=== PATIENT | female | born 1985 | race African-American/Black ===

== ENCOUNTER 2018-01-10 15:06 | Emergency (ER) | payer MEDICAID ==
[~2018-01-10] VITALS: Ht 152.4 cm; Wt 54.4 kg
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
--- NOTE | 2018-01-10 15:35 | NUR ---
DR. SCOTT AT BEDSIDE FOR EVAL.
[2018-01-10] MEDS ORDERED: IBUPROFEN 600 MG TABLET PO ONE ×2 (16:00→16:03)
--- NOTE | 2018-01-10 17:03 | NUR ---
Patient discharged to home in stable condition. Written and verbal after care instructions given. Patient verbalizes understanding of instruction.
[2018-01-10 17:04] VITALS: BP 110/71
== END 2018-01-10 17:05 | disposition home or self-care (01) ==
LOC: ER 15:08
DX: S80.02XA Contusion of left knee, initial encounter (principal); S00.83XA Contusion of other part of head, initial encounter; S19.89XA Other specified injuries of other specified part of neck, initial encounter; Z60.2 Problems related to living alone; V43.52XA Car driver injured in collision with other type car in traffic accident, initial encounter; Y93.89 Activity, other specified; Y92.410 Unspecified street and highway as the place of occurrence of the external cause; Y99.8 Other external cause status
CPT/HCPCS: 72050; 73564; 84703; 99284; A4606; Z7610

== ENCOUNTER 2019-01-17 07:19 | Emergency (ER) | payer MEDICAID ==
[~2019-01-17] VITALS: Ht 152.4 cm; Wt 54.4 kg
--- NOTE | 2019-01-17 07:36 | NUR ---
PT BIBSELF FROM HOME FOR MID UPPER ABD PAIN X 1 WEEK, WORSE TODAY, PT AAOX4, -SOB, NAD NOTED, VSS, PENDING MD GANDHI
--- NOTE | 2019-01-17 07:37 | NUR ---
DR CALLE AT BEDSIDE
[2019-01-17] MEDS ORDERED: LIDOCAINE VISCOUS 2% UD 15 ML UDC ONE (07:49)
[2019-01-17] MEDS ORDERED: MAG HYDROX/AL HYDROX/SIMETH 30 ML UDC ONE (07:49)
[2019-01-17] MEDS ORDERED: FAMOTIDINE/PF INJ 20 MG/2 ML VIAL IV ONE ×2 (07:51→08:00)
[2019-01-17 07:52] LABS: BASOPHILS % (AUTO) 0.4 % (0.0-2.0); EOSINOPHILS % (AUTO) 3.4 % (0.0-6.0); HEMATOCRIT 41 % (33-45); HEMOGLOBIN 13.7 g/dL (11.5-14.8); LYMPHOCYTES # (AUTO) 1.8 /CMM (0.8-4.8); LYMPHOCYTES % (AUTO) 33.7 % (20.0-44.0); MEAN CORPUSCULAR HGB CONC 33 g/dl (31.0-36.0); MEAN CORPUSCULAR VOLUME 96 fL (82-100); MONOCYTES # (AUTO) 0.6 /CMM (0.1-1.30); MONOCYTES % (AUTO) 10.4 % (2.0-12.0); NEUTROPHILS # (AUTO) 2.8 /CMM (1.8-8.9); NEUTROPHILS % (AUTO) 52.1 % (43.0-81.0); PLATELET COUNT (AUTO) 284 /CMM (150-450); RED BLOOD CELL COUNT(AUTO) 4.28 MIL/uL (4.0-5.2); WHITE BLOOD COUNT (AUTO) 5.3 K/uL (4.3-11.0)
[2019-01-17] MEDS ORDERED: MAG HYDROX/AL HYDROX/SIMETH 30 ML UDC PO ONE (08:00)
[2019-01-17] MEDS ORDERED: LIDOCAINE VISCOUS 2% UD 15 ML UDC MM ONE (08:00)
[2019-01-17] MEDS ORDERED: IV NS 0.9% 1,000 ML BAG IV ONE (08:00)
[2019-01-17 08:07] LABS: ALBUMIN 4.1 g/dL (3.4-5.0); BILIRUBIN,DIRECT 0.1 mg/dL (0.0-0.2); BILIRUBIN,TOTAL 0.3 mg/dL (0.2-1.0); CALCIUM, SERUM 9.7 mg/dL (8.5-10.1); CREATININE 0.8 mg/dL (0.6-1.3); POTASSIUM 4.4 mmol/L (3.5-5.1); TOTAL PROTEIN, SERUM 7.6 g/dL (6.4-8.2)
[2019-01-17] MEDS ORDERED: MORPHINE SULFATE INJ 4 MG/ML DISP.SYRIN ONE (08:41)
[2019-01-17] MEDS ORDERED: ONDANSETRON HCL/PF 4 MG/2 ML VIAL ONE (08:41)
[2019-01-17 08:42] LABS: APPEARANCE,URINE Clear (CLEAR); BILIRUBIN,URINE Negative (NEGATIVE); BLOOD, URINE Large Ery/uL (NEGATIVE); COLOR,URINE Yellow (YELLOW); KETONES,URINE Negative (NEGATIVE); LEUKOCYTE ESTERASE ,URINE Trace (NEGATIVE); NITRITE, URINE Negative (NEGATIVE); PROTEIN,URINE 30 mg/dl (NEGATIVE); UGLUCOSE Negative (NEGATIVE); UROBILINOGEN,URINE 0.2 EU/dL (0.2)
[2019-01-17] MEDS ORDERED: MORPHINE SULFATE INJ 2 MG/ML DISP.SYRIN IV ONE (09:00)
[2019-01-17] MEDS ORDERED: ONDANSETRON HCL/PF - ER 4 MG/2 ML VIAL IV ONE (09:00)
[2019-01-17 09:10] LABS: BACTERIA,URINE Few /HPF (None Seen); SQUAMOUS EPITHELIAL CELL,UR Few /HPF (None Seen)
--- NOTE | 2019-01-17 09:31 | NUR ---
PAULINA MATHIS [phone] WILL BE READ SHORTLY.
[2019-01-17] MEDS ORDERED: KETOROLAC TROMETHAMINE INJ 30 MG/ML VIAL ONE (09:42)
[2019-01-17] MEDS ORDERED: HYDROMORPHONE 1 MG/1 ML DISP.SYRIN ONE (09:43)
[2019-01-17] MEDS ORDERED: KETOROLAC TROMETHAMINE INJ 30 MG/ML VIAL IV ONE (10:00)
[2019-01-17] MEDS ORDERED: HYDROMORPHONE 1 MG/1 ML DISP.SYRIN IV ONE (10:00)
[2019-01-17 10:20] VITALS: BP 113/66
--- NOTE | 2019-01-17 10:55 | NUR ---
Patient discharged to home in stable condition. Written and verbal after care instructions given. Patient verbalizes understanding of instruction. IV removed. Catheter intact and site benign. Pressure and 4x4 applied to site. No bleeding noted.
== END 2019-01-17 10:56 | disposition home or self-care (01) ==
LOC: ER 07:29
DX: N23 Unspecified renal colic (principal); R11.10 Vomiting, unspecified; Z60.2 Problems related to living alone
CPT/HCPCS: 36415; 74176; 76705; 80048; 80076; 81001; 83690; 84703; 85025; 96361; 96374; 96375; 99284; J1170; J1885; J2270; J2405 ×2; J3490; J7030; 81000-TC

== ENCOUNTER 2020-09-14 04:42 | Emergency (ER) | payer BC, OTHER ==
[~2020-09-14] VITALS: Ht 152.4 cm; Wt 54.4 kg
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
--- NOTE | 2020-09-14 05:00 | NUR ---
DR GARCIA AT BED SIDE
[2020-09-14 05:06] LABS: BASOPHILS % (AUTO) 0.4 % (0.0-2.0); EOSINOPHILS % (AUTO) 0.8 % (0.0-6.0); HEMATOCRIT 42 % (33-45); LYMPHOCYTES # (AUTO) 3.2 K/uL (0.8-4.8); LYMPHOCYTES % (AUTO) 42.7 % (20.0-44.0); MEAN CORPUSCULAR HGB CONC 34 g/dl (31.0-36.0); MEAN CORPUSCULAR VOLUME 93 fL (82-100); MONOCYTES # (AUTO) 0.7 K/uL (0.1-1.30); MONOCYTES % (AUTO) 9.2 % (2.0-12.0); NEUTROPHILS # (AUTO) 3.5 K/uL (1.8-8.9); NEUTROPHILS % (AUTO) 46.9 % (43.0-81.0); PLATELET COUNT (AUTO) 341 K/uL (150-450); RED BLOOD CELL COUNT(AUTO) 4.45 MIL/uL (4.0-5.2); WHITE BLOOD COUNT (AUTO) 7.4 K/uL (4.3-11.0)
[2020-09-14] MEDS ORDERED: ONDANSETRON HCL/PF 4 MG/2 ML VIAL ONE (05:11)
[2020-09-14] MEDS ORDERED: KETOROLAC TROMETHAMINE 15 MG/ML VIAL ONE (05:11)
[2020-09-14] MEDS ORDERED: MORPHINE SULFATE INJ 4 MG/ML DISP.SYRIN ONE (05:12)
[2020-09-14 05:14] LABS: CALCIUM, SERUM 9.3 mg/dL (8.5-10.1); CREATININE 0.8 mg/dL (0.6-1.3); POTASSIUM 3.8 mmol/L (3.5-5.1)
[2020-09-14 05:20] LABS: ALBUMIN 4.4 g/dL (3.4-5.0); BILIRUBIN,DIRECT 0.1 mg/dL (0.0-0.2); BILIRUBIN,TOTAL 0.3 mg/dL (0.2-1.0); TOTAL PROTEIN, SERUM 7.9 g/dL (6.4-8.2)
[2020-09-14] MEDS ORDERED: MORPHINE SULFATE INJ 2 MG/ML DISP.SYRIN IV ONE (05:30)
[2020-09-14] MEDS ORDERED: ONDANSETRON HCL/PF - ER 4 MG/2 ML VIAL IV ONE (05:30)
[2020-09-14] MEDS ORDERED: KETOROLAC TROMETHAMINE INJ 30 MG/ML VIAL IV ONE (05:30)
--- NOTE | 2020-09-14 06:00 | NUR ---
US TECH AT BED SIDE
--- NOTE | 2020-09-14 08:21 | NUR ---
URINE COLLECTED AND SENT TO THE LAB
[2020-09-14 08:27] LABS: BILIRUBIN,URINE Negative (NEGATIVE); COLOR,URINE YELLOW (YELLOW); LEUKOCYTE ESTERASE ,URINE Negative (NEGATIVE); NITRITE, URINE Negative (NEGATIVE); PROTEIN,URINE Negative (NEGATIVE); UGLUCOSE Negative (NEGATIVE); UROBILINOGEN,URINE 0.2 EU/dL (0.2)
[2020-09-14 08:29] LABS: BACTERIA,URINE Rare /HPF (None Seen); SQUAMOUS EPITHELIAL CELL,UR Few /HPF (None Seen); WBC,URINE 0-2 /HPF (0-3)
[2020-09-14] MEDS ORDERED: ACET-907 PO (08:40)
[2020-09-14] MEDS ORDERED: NITR100C6 PO (08:40)
[2020-09-14 08:49] VITALS: BP 118/71
--- NOTE | 2020-09-14 08:50 | NUR ---
Patient discharged to home in stable condition. Written and verbal after care instructions given. Patient verbalizes understanding of instruction.IV removed. Catheter intact and site benign. Pressure and 4x4 applied to site. No bleeding noted.
== END 2020-09-14 08:49 | disposition home or self-care (01) ==
LOC: ER 04:44
DX: R10.31 Right lower quadrant pain (principal); R10.32 Left lower quadrant pain; Z60.2 Problems related to living alone
CPT/HCPCS: 36415; 76770; 76856; 80048; 80076; 81001; 83690; 84702; 84703; 85025; 96374; 96375; 99285; J1885; J2270; J2405 ×2; J7030

== ENCOUNTER 2021-02-22 19:32 | Emergency (ER) | payer BC, OTHER ==
[~2021-02-22] VITALS: Ht 152.4 cm; Wt 56.7 kg
[~2021-02-22 19:32] MED LIST: ACET-907 PO; NITR100C6 PO
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
[2021-02-22] MEDS ORDERED: HYDROCODONE/APAP 5/325MG TABLET ONE (20:58)
[2021-02-22] MEDS ORDERED: FENTANYL PF 100MCG/2ML AMPUL IM ONE (21:00)
[2021-02-22] MEDS ORDERED: IBUPROFEN 400 MG TABLET PO ONE (21:00)
[2021-02-22] MEDS ORDERED: oxyCODONE/APAP (5/325 MG) 1 UDTAB TABLET PO ONE (21:00)
[2021-02-22] MEDS ORDERED: FENTANYL PF 100MCG/2ML AMPUL ONE (21:18)
[2021-02-22] MEDS ORDERED: IBUPROFEN 400 MG TABLET ONE (21:19)
[2021-02-22] MEDS ORDERED: OXYC-128 PO (21:50)
[2021-02-22] MEDS ORDERED: IBUP-1957 PO (21:50)
--- NOTE | 2021-02-22 21:58 | NUR ---
EMT AT BEDSIDE FOR CRUTCH GAIT TRAINING AND KNEE IMMOBILIZER PLACEMENT
--- NOTE | 2021-02-22 22:00 | NUR ---
Patient discharged to home in stable condition. Written and verbal after care instructions given. Patient verbalizes understanding of instruction. Pt demonstrated gait training understanding and demonstrated a steady gait.
[2021-02-22 22:18] VITALS: BP 120/88
== END 2021-02-22 22:00 | disposition home or self-care (01) ==
LOC: ER 20:26
DX: S89.92XA Unspecified injury of left lower leg, initial encounter (principal); W01.0XXA Fall on same level from slipping, tripping and stumbling without subsequent striking against object, initial encounter; Y93.89 Activity, other specified; Y92.89 Other specified places as the place of occurrence of the external cause; Y99.8 Other external cause status
CPT/HCPCS: 29505; 73564; 96372; 99283; J3010